=== PATIENT | male | born 1970 | race Caucasian/White ===

== ENCOUNTER 2021-04-30 20:40 | Emergency (ER) | payer OTHER ==
[2021-04-30 20:52] VITALS: BP 138/79; PULSE 84; RESP 18; TEMP 97.8
--- NOTE | 2021-05-01 04:49 | ED ---
Recheck HPI - General Chief Complaint: Recheck/Abnormal Lab/Rx Stated Complaint: Covid Test Source: patient Mode of arrival: ambulatory Limitations: no limitations - History of Present Illness Initial Comments: 50 year-old male patient presents for purposes of obtaining COVID swab to [facility]. He denies any symptoms or exposures. Declines any further medical screening. - Related Data Allergies Allergy/AdvReac Type Severity Reaction Status Date / Time No Known Allergies Allergy Verified 04/30/21 20:55 Review of Systems ROS Statement: Those systems with pertinent positive or pertinent negative responses have been documented in the HPI. ROS Other: All systems not noted in ROS Statement are negative. Past Medical History Past Medical History: No Reported History History of Any Multi-Drug Resistant Organisms: None Reported Past Surgical History: No Surgical Hx Reported Past Psychological History: No Psychological Hx Reported Smoking Status: Never smoker Past Alcohol Use History: None Reported Past Drug Use History: None Reported General Exam Limitations: no limitations General appearance: alert, in no apparent distress Neurological exam: Present: alert, oriented X3 Course Vital Signs 04/30/21 20:50 Temperature 97.8 F Pulse Rate 84 Respiratory 18 Rate Blood Pressure 138/79 O2 Sat by Pulse 98 Oximetry Medical Decision Making - Medical Decision Making 50 year-old male presented for COVID test to [facility]. He tested negative and was provided with results. He declined any further medical screening. My attending is Dr. Abdi - Lab Data Lab Results 04/30/21 Range/Units 20:55 Coronavirus (PCR) Not Detected (Not Detectd) Disposition Clinical Impression: Encounter for laboratory testing for COVID-19 virus Disposition: HOME SELF-CARE Condition: Good Instructions (If sedation given, give patient instructions): Coronavirus Disease 2019 (COVID-19) Is patient prescribed a controlled substance at d/c from ED?: No Referrals: None,Stated [Primary Care Provider] - 1-2 days
== END 2021-04-30 21:40 | disposition home or self-care (01) ==
LOC: EC 20:40
DX: Z20.822 Contact with and (suspected) exposure to COVID-19 (principal)
CPT/HCPCS: 87635; 99282